=== PATIENT | female | born 1940 | race Caucasian/White ===

== ENCOUNTER 2021-04-19 21:24 | Inpatient (IN) ==
[2021-04-19 22:25] LABS: Basophils # 0.1 10*3/uL (0.0-0.2); Basophils % 0.2 % (0.0-0.8); Hematocrit 41.2 VOL% (35.7-47.0); Immature Granulocytes % 6.3 %; Immature Granulocytes Absolute 1.89 #; Lymphocytes % 3.3 % (21.3-54.2); Mean Corpuscular HGB Conc 31.6 GM/DL (32-36); Mean Platelet Volume 12.2 FL (9.6-12.0); Monocytes % 4.5 % (1.7-12.7); Neutrophils % 85.7 % (38.7-73.9); Platelet Count 251 T/CUMM (130-400); Red Blood Count 4.29 MC/CUMM (3.8-5.5); Red Cell Distribution Width 14.4 % (9.3-17.3); White Blood Count 29.8 T/CUMM (4-12)
[2021-04-19 22:33] LABS: INR 1.5; PT Patient Result 16.9 SECS (10.5-12.0); Partial Thromboplastin Time 29.7 SECS (23.9-33.8)
[2021-04-19 22:35] LABS: Albumin 3.1 G/DL (3.4-5.0); Bilirubin,Total 3.9 MG/DL (0.20-1.00); Calcium 10.7 MG/DL (8.5-10.1); Osmolality,Calculated 291.3 MOS/KG (273-304); Potassium 4.8 MMOL/L (3.5-5.1); Total Protein 8.2 G/DL (6.4-8.2)
[2021-04-19 22:55] LABS: Band Neutrophils 8 % (0-10); Lymphocytes 6 % (20-55); Platelet Estimate Normal; Segmented Neutrophils 81 % (50-85); Total Cells Counted 100
[2021-04-19 23:55] LABS: Bilirubin,Urine Negative (Negative); Blood, Urine Moderate mg/dL (Negative); Glucose,Urine (UA) Negative (Negative); Ketones,Urine Negative (Negative); Nitrite,Urine Negative (Negative); Protein,Urine >=500 MG/DL; RBC,Urine 91 /HPF (0-4); Squamous Epithelial Cell,Urine Occasional /HPF (0-10); Urine Appearance CLOUDY (Clear); Urine Color Amber (Yellow); Urine Specific Gravity 1.018 (1.001-1.035)
[2021-04-20] MEDS ORDERED: cefTRIAXone 1,000 MG in SODIUM CHLORIDE 0.9% 100 ML IV STA (00:09)
[2021-04-20] MEDS ORDERED: FUROSEMIDE 40 MG/4 ML VIAL IV STA (00:32)
[2021-04-20] MEDS ORDERED: cloNIDine 0.1 MG TABLET PO STA (01:05)
[2021-04-20] MEDS ORDERED: SOTALOL 80 MG TABLET PO STA (01:05)
[2021-04-20] MEDS ORDERED: SOTALOL 80 MG TABLET ONE (01:09)
[2021-04-20] MEDS ORDERED: ACETAMINOPHEN 325 MG TABLET ONE (01:49)
[2021-04-20] MEDS ORDERED: ACETAMINOPHEN 325 MG TABLET PO ONE (02:18)
[2021-04-20] MEDS ORDERED: DEXTROSE 50% 25 GM/50 ML VIAL IV PRN (02:35)
[2021-04-20] MEDS ORDERED: GLUCAGON 1 MG VIAL IM PRN (02:35)
[2021-04-20] MEDS ORDERED: ACETAMINOPHEN 325 MG TABLET PO PRN (02:38)
[2021-04-20] MEDS ORDERED: ONDANSETRON 4 MG/2 ML VIAL IV PRN (02:38)
[2021-04-20] MEDS ORDERED: SODIUM CHLORIDE 0.9% 500 ML IV STA (03:11)
[2021-04-20 04:03] LABS: Basophils % 0.2 % (0.0-0.8); Hematocrit 39.9 VOL% (35.7-47.0); Hemoglobin 12.6 GM/DL (12.0-16.0); Immature Granulocytes Absolute 0.82 #; Lymphocytes # 0.5 10*3/uL (1.4-4.0); Lymphocytes % 2.5 % (21.3-54.2); Mean Corpuscular HGB Conc 31.6 GM/DL (32-36); Mean Corpuscular Volume 94.5 FL (87-102); Mean Platelet Volume 11.3 FL (9.6-12.0); Monocytes % 4.7 % (1.7-12.7); Neutrophils % 88.6 % (38.7-73.9); Platelet Count 192 T/CUMM (130-400); Red Blood Count 4.22 MC/CUMM (3.8-5.5); Red Cell Distribution Width 14.2 % (9.3-17.3); White Blood Count 20.7 T/CUMM (4-12)
[2021-04-20] MEDS: SODIUM CHLORIDE 0.9% 1,000 ML IV SCH ×2 (04:22→16:56)
[2021-04-20 04:25] LABS: Band Neutrophils 7 % (0-10); Lymphocytes 3 % (20-55); Metamyelocytes 1 %; Segmented Neutrophils 85 % (50-85); Total Cells Counted 100
[2021-04-20 04:26] LABS: Hypochromasia Slight; Microcytosis Slight
[2021-04-20 04:30] LABS: Albumin 2.8 G/DL (3.4-5.0); Bilirubin,Total 3.6 MG/DL (0.20-1.00); Calcium 10.6 MG/DL (8.5-10.1); Osmolality,Calculated 294.1 MOS/KG (273-304); Potassium 3.1 MMOL/L (3.5-5.1); Total Protein 6.9 G/DL (6.4-8.2)
[2021-04-20] MEDS ORDERED: MAGNESIUM SULF RIDER 2 GM/50 ML PREMIX IV PRN (07:47)
[2021-04-20] MEDS ORDERED: MAGNESIUM SULF RIDER 4 GM/100 ML PREMIX IV PRN (07:47)
[2021-04-20] MEDS ORDERED: FUROSEMIDE 40 MG/4 ML VIAL IV SCH ×2 (09:00→16:00)
[2021-04-20] MEDS ORDERED: SOTALOL 80 MG TABLET PO SCH (09:00)
[2021-04-20] MEDS: SOTALOL 80 MG TABLET PO SCH ×2 (09:13→20:45)
[2021-04-20] MEDS: amLODIPine 5 MG TABLET PO SCH (09:14)
[2021-04-20] MEDS: cloNIDine 0.1 MG TABLET PO SCH ×2 (09:14→20:45)
[2021-04-20] MEDS: POTASSIUM CHLORIDE 10 MEQ TABLET PO SCH (09:14)
[2021-04-20] MEDS: APIXABAN 2.5 MG TABLET PO SCH ×2 (09:14→20:45)
[2021-04-20] MEDS: ASCORBIC ACID 500 MG TABLET PO SCH ×2 (09:15→20:45)
[2021-04-20] MEDS: MEROPENEM 500 MG in SODIUM CHLORIDE 0.9% 100 ML IV SCH ×2 (12:52→20:44)
[2021-04-20] MEDS: POTASSIUM CHLORIDE RIDER 10 MEQ/100 ML PREMIX IV PRN (18:19)
[2021-04-20] MEDS ORDERED: SIMVASTATIN 10 MG TABLET PO SCH (21:00)
[2021-04-21] MEDS: SODIUM CHLORIDE 0.9% 1,000 ML IV SCH ×2 (03:43→14:18)
[2021-04-21] MEDS: MEROPENEM 500 MG in SODIUM CHLORIDE 0.9% 100 ML IV SCH ×2 (04:09→15:53)
[2021-04-21 05:44] LABS: Basophils % 0.1 % (0.0-0.8); Hematocrit 34.6 VOL% (35.7-47.0); Hemoglobin 10.9 GM/DL (12.0-16.0); Immature Granulocytes % 1.1 %; Immature Granulocytes Absolute 0.23 #; Lymphocytes # 0.7 10*3/uL (1.4-4.0); Lymphocytes % 3.5 % (21.3-54.2); Mean Corpuscular HGB Conc 31.5 GM/DL (32-36); Mean Corpuscular Volume 96.9 FL (87-102); Mean Platelet Volume 12.1 FL (9.6-12.0); Monocytes % 5.1 % (1.7-12.7); Neutrophils % 90.2 % (38.7-73.9); Platelet Count 180 T/CUMM (130-400); Red Blood Count 3.57 MC/CUMM (3.8-5.5); Red Cell Distribution Width 14.5 % (9.3-17.3); White Blood Count 21.1 T/CUMM (4-12)
[2021-04-21 05:53] LABS: Calcium 9.5 MG/DL (8.5-10.1); INR 1.3; Osmolality,Calculated 300.3 MOS/KG (273-304); PT Patient Result 14.6 SECS (10.5-12.0); Potassium 3.8 MMOL/L (3.5-5.1)
[2021-04-21 05:57] LABS: Albumin 2.2 G/DL (3.4-5.0); Bilirubin,Total 1.3 MG/DL (0.20-1.00); Calcium 9.5 MG/DL (8.5-10.1); Osmolality,Calculated 303.8 MOS/KG (273-304); Potassium 3.9 MMOL/L (3.5-5.1); Total Protein 6.1 G/DL (6.4-8.2)
[2021-04-21] MEDS: DOCUSATE SODIUM 100 MG CAPSULE PO PRN ×2 (06:18→20:51)
[2021-04-21 06:49] LABS: Band Neutrophils 3 % (0-10); Hypochromasia Slight; Lymphocytes 6 % (20-55); Platelet Estimate Normal; Segmented Neutrophils 88 % (50-85); Total Cells Counted 100
[2021-04-21] MEDS ORDERED: cefTRIAXone 2,000 MG in SODIUM CHLORIDE 0.9% 100 ML IV SCH (09:00)
[2021-04-21] MEDS: APIXABAN 2.5 MG TABLET PO SCH ×2 (09:29→20:50)
[2021-04-21] MEDS: cloNIDine 0.1 MG TABLET PO SCH ×2 (09:29→20:50)
[2021-04-21] MEDS: ASCORBIC ACID 500 MG TABLET PO SCH ×2 (09:29→20:51)
[2021-04-21] MEDS: SOTALOL 80 MG TABLET PO SCH ×2 (09:30→20:50)
[2021-04-21] MEDS: POTASSIUM CHLORIDE RIDER 10 MEQ/100 ML PREMIX IV PRN (09:30)
[2021-04-21] MEDS: POTASSIUM CHLORIDE 10 MEQ TABLET PO SCH (09:30)
[2021-04-21] MEDS: amLODIPine 5 MG TABLET PO SCH (09:30)
[2021-04-22] MEDS: SODIUM CHLORIDE 0.9% 1,000 ML IV SCH ×2 (01:00→11:57)
[2021-04-22] MEDS: MEROPENEM 500 MG in SODIUM CHLORIDE 0.9% 100 ML IV SCH (04:18)
[2021-04-22 05:06] LABS: Basophils % 0.2 % (0.0-0.8); Eosinophils # 0.1 10*3/uL (0.0-0.87); Eosinophils % 0.4 % (0.00-10.9); Hematocrit 33.3 VOL% (35.7-47.0); Hemoglobin 10.9 GM/DL (12.0-16.0); Immature Granulocytes % 0.6 %; Immature Granulocytes Absolute 0.09 #; Lymphocytes # 0.7 10*3/uL (1.4-4.0); Lymphocytes % 4.6 % (21.3-54.2); Mean Corpuscular HGB Conc 32.7 GM/DL (32-36); Mean Corpuscular Volume 94.1 FL (87-102); Mean Platelet Volume 11.9 FL (9.6-12.0); Neutrophils % 88.2 % (38.7-73.9); Platelet Count 181 T/CUMM (130-400); Red Blood Count 3.54 MC/CUMM (3.8-5.5); Red Cell Distribution Width 14.6 % (9.3-17.3)
[2021-04-22 05:23] LABS: INR 1.2; PT Patient Result 13.5 SECS (10.5-12.0)
[2021-04-22 05:27] LABS: Calcium 9.6 MG/DL (8.5-10.1); Osmolality,Calculated 301.3 MOS/KG (273-304); Potassium 3.8 MMOL/L (3.5-5.1)
[2021-04-22 07:17] LABS: Band Neutrophils 17 % (0-10); Lymphocytes 4 % (20-55); Platelet Estimate Normal; Segmented Neutrophils 69 % (50-85); Total Cells Counted 100
[2021-04-22 07:18] LABS: Anisocytosis 2+; Burr Cells Few; Macrocytosis 1+; Tear Drop Cells Few
[2021-04-22] MEDS: ASCORBIC ACID 500 MG TABLET PO SCH ×2 (09:46→20:54)
[2021-04-22] MEDS: cloNIDine 0.1 MG TABLET PO SCH ×2 (09:47→20:54)
[2021-04-22] MEDS: SOTALOL 80 MG TABLET PO SCH ×2 (09:47→20:53)
[2021-04-22] MEDS: POTASSIUM CHLORIDE 10 MEQ TABLET PO SCH (09:47)
[2021-04-22] MEDS: amLODIPine 5 MG TABLET PO SCH (09:47)
[2021-04-22] MEDS: APIXABAN 2.5 MG TABLET PO SCH ×2 (09:47→20:54)
[2021-04-22] MEDS ORDERED: POTASSIUM CHLORIDE 10 MEQ TABLET PO ONE (10:00)
[2021-04-22] MEDS: METOPROLOL TARTRATE 25 MG TABLET PO SCH ×2 (11:58→20:54)
[2021-04-22] MEDS ORDERED: MULTIVITAMIN INJ 10 ML in DEXTROSE 5% NACL 0.45% 1,000 ML IV SCH (12:30)
[2021-04-22] MEDS: cefTRIAXone 2,000 MG in SODIUM CHLORIDE 0.9% 100 ML IV SCH (15:41)
[2021-04-22] MEDS: CYPROHEPTADINE 4 MG TABLET PO SCH ×2 (15:41→20:54)
[2021-04-23 07:02] LABS: Basophils % 0.2 % (0.0-0.8); Eosinophils # 0.2 10*3/uL (0.0-0.87); Eosinophils % 1.7 % (0.00-10.9); Immature Granulocytes Absolute 0.12 #; Lymphocytes # 0.8 10*3/uL (1.4-4.0); Lymphocytes % 6.7 % (21.3-54.2); Mean Corpuscular HGB Conc 31.4 GM/DL (32-36); Mean Corpuscular Volume 94.9 FL (87-102); Mean Platelet Volume 11.5 FL (9.6-12.0); Monocytes % 9.7 % (1.7-12.7); Neutrophils % 80.7 % (38.7-73.9); Platelet Count 192 T/CUMM (130-400); Red Blood Count 3.69 MC/CUMM (3.8-5.5); Red Cell Distribution Width 14.6 % (9.3-17.3); White Blood Count 12.2 T/CUMM (4-12)
[2021-04-23 07:08] LABS: INR 1.2; PT Patient Result 13.1 SECS (10.5-12.0)
[2021-04-23 07:23] LABS: Calcium 9.8 MG/DL (8.5-10.1); Osmolality,Calculated 301.1 MOS/KG (273-304); Potassium 3.7 MMOL/L (3.5-5.1)
[2021-04-23 07:31] LABS: Eosinophils 3 % (0-10); Lymphocytes 13 % (20-55); Segmented Neutrophils 78 % (50-85); Total Cells Counted 100
[2021-04-23 07:32] LABS: Hypochromasia 1+; Microcytosis 1+; Ovalocytes Slight; Platelet Estimate Adequate
[2021-04-23] MEDS: APIXABAN 2.5 MG TABLET PO SCH ×2 (09:47→21:41)
[2021-04-23] MEDS: POTASSIUM CHLORIDE 10 MEQ TABLET PO SCH (09:47)
[2021-04-23] MEDS: CYPROHEPTADINE 4 MG TABLET PO SCH ×2 (09:47→21:42)
[2021-04-23] MEDS: ASCORBIC ACID 500 MG TABLET PO SCH ×2 (09:47→21:41)
[2021-04-23] MEDS: SOTALOL 80 MG TABLET PO SCH ×2 (09:47→21:41)
[2021-04-23] MEDS: METOPROLOL TARTRATE 25 MG TABLET PO SCH ×2 (09:47→21:41)
[2021-04-23] MEDS: amLODIPine 5 MG TABLET PO SCH (09:47)
[2021-04-23] MEDS: cloNIDine 0.1 MG TABLET PO SCH ×2 (09:47→21:41)
[2021-04-23] MEDS: hydrALAZINE 25 MG TABLET PO SCH ×2 (15:20→21:41)
[2021-04-23] MEDS: cefTRIAXone 2,000 MG in SODIUM CHLORIDE 0.9% 100 ML IV SCH (15:20)
[2021-04-24] MEDS: SOTALOL 80 MG TABLET PO SCH ×2 (08:39→20:49)
[2021-04-24] MEDS: hydrALAZINE 25 MG TABLET PO SCH ×2 (08:41→20:49)
[2021-04-24] MEDS: APIXABAN 2.5 MG TABLET PO SCH ×2 (08:41→20:49)
[2021-04-24] MEDS: cloNIDine 0.1 MG TABLET PO SCH ×2 (08:41→20:49)
[2021-04-24] MEDS: CYPROHEPTADINE 4 MG TABLET PO SCH (08:42)
[2021-04-24] MEDS: amLODIPine 5 MG TABLET PO SCH (08:42)
[2021-04-24] MEDS: POTASSIUM CHLORIDE 10 MEQ TABLET PO SCH (08:42)
[2021-04-24] MEDS: METOPROLOL TARTRATE 25 MG TABLET PO SCH ×2 (08:42→20:49)
[2021-04-24] MEDS: ASCORBIC ACID 500 MG TABLET PO SCH ×2 (08:43→20:49)
[2021-04-24 11:03] LABS: Basophils % 0.2 % (0.0-0.8); Eosinophils # 0.1 10*3/uL (0.0-0.87); Eosinophils % 0.7 % (0.00-10.9); Hematocrit 34.5 VOL% (35.7-47.0); Hemoglobin 10.9 GM/DL (12.0-16.0); Immature Granulocytes % 2.6 %; Immature Granulocytes Absolute 0.45 #; Lymphocytes # 0.9 10*3/uL (1.4-4.0); Lymphocytes % 5.5 % (21.3-54.2); Mean Corpuscular HGB Conc 31.6 GM/DL (32-36); Mean Platelet Volume 11.6 FL (9.6-12.0); Monocytes % 9.3 % (1.7-12.7); Neutrophils % 81.7 % (38.7-73.9); Platelet Count 197 T/CUMM (130-400); Red Blood Count 3.71 MC/CUMM (3.8-5.5); Red Cell Distribution Width 14.6 % (9.3-17.3); White Blood Count 17.1 T/CUMM (4-12)
[2021-04-24 11:28] LABS: Albumin 1.9 G/DL (3.4-5.0); Bilirubin,Total 2.2 MG/DL (0.20-1.00); Calcium 9.8 MG/DL (8.5-10.1); Osmolality,Calculated 298.3 MOS/KG (273-304); Potassium 3.4 MMOL/L (3.5-5.1); Total Protein 5.5 G/DL (6.4-8.2)
[2021-04-24] MEDS: MEROPENEM 500 MG in SODIUM CHLORIDE 0.9% 100 ML IV SCH (13:26)
[2021-04-25] MEDS: MEROPENEM 500 MG in SODIUM CHLORIDE 0.9% 100 ML IV SCH ×2 (01:12→14:54)
[2021-04-25] MEDS ORDERED: POTASSIUM CHLORIDE 20 MEQ PACK PO SCH (09:00)
[2021-04-25 09:19] LABS: Albumin 1.9 G/DL (3.4-5.0); Bilirubin,Total 0.9 MG/DL (0.20-1.00); Calcium 9.8 MG/DL (8.5-10.1); Osmolality,Calculated 289.5 MOS/KG (273-304); Potassium 3.6 MMOL/L (3.5-5.1); Total Protein 5.9 G/DL (6.4-8.2)
[2021-04-25] MEDS: METOPROLOL TARTRATE 25 MG TABLET PO SCH (09:25)
[2021-04-25] MEDS: ASCORBIC ACID 500 MG TABLET PO SCH (09:25)
[2021-04-25] MEDS: SOTALOL 80 MG TABLET PO SCH (09:25)
[2021-04-25] MEDS: cloNIDine 0.1 MG TABLET PO SCH (09:25)
[2021-04-25] MEDS: amLODIPine 5 MG TABLET PO SCH (09:26)
[2021-04-25] MEDS: hydrALAZINE 25 MG TABLET PO SCH (09:26)
[2021-04-25] MEDS: APIXABAN 2.5 MG TABLET PO SCH (09:26)
[2021-04-25] MEDS: POTASSIUM CHLORIDE RIDER 10 MEQ/100 ML PREMIX IV PRN (09:35)
[2021-04-25 17:36] VITALS: BP 174/74
== END 2021-04-25 17:12 | DRG 871 ==
LOC: N.ED 21:24 → N.EDINP 04-20 00:31 → N.TELES 04-20 02:56
PROVIDERS: ADMIT Hospitalist; ATTEND Hospitalist

== ENCOUNTER 2021-12-25 17:37 | Inpatient (IN) ==
[2021-12-25 19:36] LABS: Bilirubin,Urine Negative (Negative); Glucose,Urine (UA) Negative (Negative); Ketones,Urine Negative (Negative); Nitrite,Urine Negative (Negative); Protein,Urine Trace mg/dL (Negative); RBC,Urine 2 /HPF (0-4); Squamous Epithelial Cell,Urine Occasional /HPF (0-10); Urine Appearance Clear (Clear); Urine Color Yellow (Yellow); Urine pH 5.5 (4.5-8.0)
[2021-12-25 19:37] LABS: Blood, Urine Negative (Negative)
[2021-12-25 19:49] LABS: Basophils % 0.2 % (0.0-0.8); Hematocrit 43.8 VOL% (35.7-47.0); Immature Granulocytes % 0.5 %; Immature Granulocytes Absolute 0.06 #; Lymphocytes % 7.3 % (21.3-54.2); Mean Corpuscular Volume 92.2 FL (87-102); Mean Platelet Volume 11.5 FL (9.6-12.0); Monocytes # 0.8 10*3/uL (0.11-0.8); Monocytes % 6.2 % (1.7-12.7); Neutrophils % 85.8 % (38.7-73.9); Platelet Count 231 T/CUMM (130-400); Red Blood Count 4.75 MC/CUMM (3.8-5.5); Red Cell Distribution Width 13.5 % (9.3-17.3); White Blood Count 13.1 T/CUMM (4-12)
[2021-12-25] MEDS ORDERED: SODIUM CHLORIDE 0.9% 1,000 ML IV STA (19:55)
[2021-12-25 20:04] LABS: Albumin 3.1 G/DL (3.4-5.0); Calcium 11.1 MG/DL (8.5-10.1); Osmolality,Calculated 276.8 MOS/KG (273-304); Potassium 2.7 MMOL/L (3.5-5.1); Total Protein 7.3 G/DL (6.4-8.2)
[2021-12-25] MEDS ORDERED: POTASSIUM CHLORIDE RIDER 10 MEQ/100 ML PREMIX IV ONE (20:42)
[2021-12-25] MEDS ORDERED: ONDANSETRON 4 MG/2 ML VIAL IV PRN (22:27)
[2021-12-25] MEDS ORDERED: ACETAMINOPHEN 325 MG TABLET PO PRN (22:27)
[2021-12-25] MEDS ORDERED: ZALEPLON 5 MG CAPSULE PO PRN (22:27)
[2021-12-25] MEDS ORDERED: SIMETHICONE CHEW 80 MG TABLET PO PRN (22:34)
[2021-12-25] MEDS ORDERED: SODIUM CHLORIDE 0.9% 1,000 ML IV SCH (23:00)
[2021-12-26] MEDS: LEVOFLOXACIN INJ 250 MG/50 ML PREMIX IV SCH ×2 (00:04→22:58)
[2021-12-26 06:46] LABS: Basophils % 0.4 % (0.0-0.8); Eosinophils % 0.2 % (0.00-10.9); Hematocrit 39.6 VOL% (35.7-47.0); Hemoglobin 12.8 GM/DL (12.0-16.0); Immature Granulocytes % 0.4 %; Immature Granulocytes Absolute 0.04 #; Lymphocytes # 1.6 10*3/uL (1.4-4.0); Lymphocytes % 14.1 % (21.3-54.2); Mean Corpuscular HGB Conc 32.3 GM/DL (32-36); Mean Corpuscular Volume 92.7 FL (87-102); Mean Platelet Volume 11.5 FL (9.6-12.0); Monocytes # 0.9 10*3/uL (0.11-0.8); Monocytes % 7.7 % (1.7-12.7); Neutrophils % 77.2 % (38.7-73.9); Platelet Count 175 T/CUMM (130-400); Red Blood Count 4.27 MC/CUMM (3.8-5.5); Red Cell Distribution Width 13.4 % (9.3-17.3)
[2021-12-26] MEDS: PANTOPRAZOLE 40 MG TABLET PO SCH (07:07)
[2021-12-26 07:18] LABS: Albumin 2.6 G/DL (3.4-5.0); Bilirubin,Total 1.6 MG/DL (0.20-1.00); Calcium 10.2 MG/DL (8.5-10.1); Potassium 3.6 MMOL/L (3.5-5.1); Total Protein 6.3 G/DL (6.4-8.2)
[2021-12-26] MEDS: amLODIPine 5 MG TABLET PO SCH (09:14)
[2021-12-26] MEDS: ASCORBIC ACID 500 MG TABLET PO SCH ×2 (09:15→21:15)
[2021-12-26] MEDS: hydrALAZINE 25 MG TABLET PO SCH ×2 (09:16→21:16)
[2021-12-26] MEDS: METOPROLOL TARTRATE 25 MG TABLET PO SCH ×2 (09:16→21:16)
[2021-12-26] MEDS: cloNIDine 0.1 MG TABLET PO SCH ×2 (09:21→21:16)
[2021-12-26] MEDS: CHOLECALCIFEROL 5,000 UNIT TABLET PO SCH (12:25)
[2021-12-27] MEDS: PANTOPRAZOLE 40 MG TABLET PO SCH (06:09)
[2021-12-27 06:20] LABS: Basophils % 0.3 % (0.0-0.8); Eosinophils # 0.1 10*3/uL (0.0-0.87); Eosinophils % 1.3 % (0.00-10.9); Hematocrit 39.7 VOL% (35.7-47.0); Hemoglobin 12.6 GM/DL (12.0-16.0); Immature Granulocytes % 0.4 %; Immature Granulocytes Absolute 0.04 #; Lymphocytes # 2.1 10*3/uL (1.4-4.0); Lymphocytes % 20.1 % (21.3-54.2); Mean Corpuscular HGB Conc 31.7 GM/DL (32-36); Mean Corpuscular Volume 92.3 FL (87-102); Mean Platelet Volume 11.8 FL (9.6-12.0); Monocytes # 1.1 10*3/uL (0.11-0.8); Monocytes % 10.8 % (1.7-12.7); Neutrophils % 67.1 % (38.7-73.9); Platelet Count 191 T/CUMM (130-400); Red Cell Distribution Width 13.4 % (9.3-17.3); White Blood Count 10.2 T/CUMM (4-12)
[2021-12-27 06:33] LABS: Osmolality,Calculated 283.1 MOS/KG (273-304); Potassium 2.7 MMOL/L (3.5-5.1)
[2021-12-27] MEDS ORDERED: ASPIRIN CHEW 81 MG TABLET PO ONE ×2 (08:48→08:52)
[2021-12-27] MEDS ORDERED: NITROGLYCERIN SL 0.4 MG TABLET SL ONE (08:49)
[2021-12-27] MEDS ORDERED: NITROGLYCERIN SL 0.4 MG TABLET SL PRN (08:52)
[2021-12-27] MEDS: amLODIPine 5 MG TABLET PO SCH (09:26)
[2021-12-27] MEDS: METOPROLOL TARTRATE 25 MG TABLET PO SCH (09:26)
[2021-12-27] MEDS: ASCORBIC ACID 500 MG TABLET PO SCH ×2 (09:26→21:27)
[2021-12-27] MEDS: hydrALAZINE 25 MG TABLET PO SCH ×2 (09:26→21:27)
[2021-12-27] MEDS: CHOLECALCIFEROL 5,000 UNIT TABLET PO SCH (09:29)
[2021-12-27] MEDS: cloNIDine 0.1 MG TABLET PO SCH ×2 (09:29→21:27)
[2021-12-27] MEDS ORDERED: MAGNESIUM SULF RIDER 2 GM/50 ML PREMIX IV ONE (11:00)
[2021-12-27] MEDS: POTASSIUM CHLORIDE 20 MEQ TABLET PO SCH ×3 (11:01→15:13)
[2021-12-27 12:42] LABS: Free T4 (Free Thyroxine) 1.06 NG/DL (0.76-1.46)
[2021-12-27] MEDS ORDERED: METOPROLOL TARTRATE 25 MG TABLET PO ONE (15:00)
[2021-12-27 16:26] LABS: Calcium 10.6 MG/DL (8.5-10.1); Osmolality,Calculated 276.7 MOS/KG (273-304); Potassium 4.2 MMOL/L (3.5-5.1)
[2021-12-27] MEDS: METOPROLOL TARTRATE 50 MG TABLET PO SCH (21:27)
[2021-12-27] MEDS: MENTHOL/ZINC OXIDE OINT 71 GM JAR TOP SCH (21:27)
[2021-12-27] MEDS: LEVOFLOXACIN INJ 250 MG/50 ML PREMIX IV SCH (23:43)
[2021-12-28 05:14] LABS: Basophils % 0.3 % (0.0-0.8); Eosinophils # 0.2 10*3/uL (0.0-0.87); Eosinophils % 1.7 % (0.00-10.9); Hematocrit 41.3 VOL% (35.7-47.0); Immature Granulocytes % 0.4 %; Immature Granulocytes Absolute 0.04 #; Lymphocytes # 2.3 10*3/uL (1.4-4.0); Lymphocytes % 23.6 % (21.3-54.2); Mean Corpuscular HGB Conc 31.5 GM/DL (32-36); Mean Corpuscular Volume 93.9 FL (87-102); Mean Platelet Volume 11.6 FL (9.6-12.0); Monocytes # 0.7 10*3/uL (0.11-0.8); Monocytes % 7.5 % (1.7-12.7); Neutrophils % 66.5 % (38.7-73.9); Platelet Count 192 T/CUMM (130-400); Red Cell Distribution Width 13.3 % (9.3-17.3); White Blood Count 9.6 T/CUMM (4-12)
[2021-12-28 05:29] LABS: Calcium 10.7 MG/DL (8.5-10.1); Osmolality,Calculated 283.3 MOS/KG (273-304); Potassium 4.5 MMOL/L (3.5-5.1)
[2021-12-28] MEDS: PANTOPRAZOLE 40 MG TABLET PO SCH (06:33)
[2021-12-28] MEDS ORDERED: CINACALCET 30 MG TABLET PO SCH (09:00)
[2021-12-28] MEDS ORDERED: ASPIRIN CHEW 81 MG TABLET PO SCH (09:00)
[2021-12-28] MEDS ORDERED: ENOXAPARIN 40 MG/0.4 ML SYRINGE SUBCUT SCH (09:00)
[2021-12-28] MEDS: cloNIDine 0.1 MG TABLET PO SCH (09:10)
[2021-12-28] MEDS: CHOLECALCIFEROL 5,000 UNIT TABLET PO SCH (09:10)
[2021-12-28] MEDS: MENTHOL/ZINC OXIDE OINT 71 GM JAR TOP SCH (09:10)
[2021-12-28] MEDS: METOPROLOL TARTRATE 50 MG TABLET PO SCH (09:11)
[2021-12-28] MEDS: amLODIPine 5 MG TABLET PO SCH (09:11)
[2021-12-28] MEDS: ASCORBIC ACID 500 MG TABLET PO SCH (09:11)
[2021-12-28] MEDS ORDERED: hydroCHLOROthiazide 25 MG TABLET PO SCH (13:00)
[2021-12-28] MEDS ORDERED: OLMESARTAN 20 MG TABLET PO SCH (13:00)
[2021-12-28 16:14] VITALS: BP 131/75
[2021-12-28] MEDS ORDERED: SOTALOL 80 MG TABLET PO SCH (21:00)
[2021-12-28] MEDS ORDERED: APIXABAN 2.5 MG TABLET PO SCH (21:00)
[2021-12-28] MEDS ORDERED: hydrALAZINE 25 MG TABLET PO SCH (21:00)
[2021-12-28] MEDS ORDERED: POTASSIUM BICARB EFFERVESCENT 20 MEQ TAB.EFF PO SCH (21:00)
[2021-12-29] MEDS ORDERED: SIMVASTATIN 10 MG TABLET PO SCH (21:00)
== END 2021-12-28 17:34 | disposition home health service (06) | DRG 643 ==
LOC: N.ED 17:37 → N.EDINP 17:37 → SUATTDRO 22:27 → N.EDINP 23:20 → N.5E 23:58 → SUATTDRO 12-26 08:08
PROVIDERS: ADMIT Internal Medicine; ATTEND Internal Medicine